=== PATIENT | female | born 1985 | race Caucasian/White ===

== ENCOUNTER 2017-12-31 19:56 | Emergency (ER) | payer MEDICAID ==
--- NOTE | 2017-12-31 21:14 | NUR ---
CALLED PT'S NAME THREE TIMES, NO RESPONSE IN WAITING ROOM
--- NOTE | 2017-12-31 21:36 | NUR ---
CALLED PT'S NAME THREE TIMES, NO RESPONSE IN WAITING ROOM
== END 2017-12-31 21:39 | disposition left against medical advice (07) ==
LOC: ER 19:59
DX: Z53.21 Procedure and treatment not carried out due to patient leaving prior to being seen by health care provider (principal)